=== PATIENT | female | born 1990 | race Caucasian/White ===

== ENCOUNTER 2020-05-30 15:02 | Emergency (ER) | payer OTHER, SELFPAY ==
[2020-05-30 15:30] VITALS: BP 122/88; PULSE 96; RESP 18; TEMP 37.1; O2SAT 99
--- NOTE | 2020-05-30 15:50 | ED.NECK ---
HPI - Neck Pain/Injury General Chief Complaint: Neck Pain/Injury Stated Complaint: Strained Muscle Time Seen by Provider: 05/30/20 15:45 Source: patient and RN notes reviewed Mode of arrival: ambulatory Limitations: no limitations History of Present Illness HPI Narrative: Patient presents today complaining of left neck pain. Pain started last night and kept her from sleeping. Denies numbness or tingling in the extremities. Denies any injury or trauma. Patient does not exercise or lift weights. She currently rates her pain 10/10, which increases with movement. She has been taking Tylenol without relief. complaint: neck pain Related Data Allergies Allergy/AdvReac Type Severity Reaction Status Date / Time No Known Allergies Allergy Verified 05/30/20 15:49 Review of Systems Review of Systems: Narrative: CONSTITUTIONAL: Denies body aches, fever, chills, or sweats. EYES: Denies visual changes, redness, or discharge. ENT: Denies rhinorrhea, congestion, sore throat, or otalgia. CARDIOVASCULAR: Denies chest pain, palpitations, or edema. RESPIRATORY: Denies cough or dyspnea. GASTROINTESTINAL: Denies abdominal pain, nausea, vomiting, or diarrhea. GENITOURINARY: Denies dysuria or hematuria. SKIN: Denies rash, itching, or wounds. MUSCULOSKELETAL: Denies back pain, joint pain, or myalgia.+ Neck pain NEUROLOGIC: Denies headache, numbness, tingling, or weakness. PSYCH: Denies depression or anxiety. PMFSH Comments At time of signature, I have reviewed and agree with nursing past medical, surgical, social and family history unless otherwise noted. Please see nursing chart for further information. There is no relevant family history pertinent to the presenting complaint Exam Narrative: Exam Narrative: GENERAL: Well-appearing, well-nourished, and in no acute distress. HEAD: Normocephalic, atraumatic. EYES: EOMI. No redness or drainage. Conjunctivae normal. ENT: Mucous membranes pink and moist. NECK: Decreased AROM due to pain. Tenderness to the left trapezius. Patient has full range of motion of her left arm/shoulder, with slight increased pain with internal and external rotation. No edema, ecchymosis noted. Distal sensation intact. Capillary refill normal. Radial pulses normal. No bony tenderness of the cervical spine noted. Supple. No lymphadenopathy. CHEST: No respiratory distress. EXTREMITIES: Normal range of motion. No edema. SKIN: Warm, dry, no rash. Capillary refill normal. Normal skin turgor. NEURO: No focal deficits. Alert and oriented x3. Gait steady. PSYCH: Normal affect. No signs of depression or anxiety. Course Vital Signs Vital signs: Vital Signs Temperature 98.8 F 05/30/20 15:30 Pulse Rate 96 05/30/20 15:30 Respiratory Rate 18 05/30/20 15:30 Blood Pressure 122/88 05/30/20 15:30 Pulse Oximetry 99 05/30/20 15:30 Temperature 98.8 F 05/30/20 15:30 Pulse Rate 96 05/30/20 15:30 Respiratory Rate 18 05/30/20 15:30 Blood Pressure 122/88 05/30/20 15:30 Pulse Oximetry 99 05/30/20 15:30 Reviewed. Pt has been instructed to follow up with her PCP regarding her elevated blood pressure today. MDM - Neck Pain/Injury Differential Diagnosis Differential diagnosis: Likely disc disorder of cervical region, whiplash injury to neck, cervical radiculopathy, torticollis and strain of neck muscle Critical Care Time Critical Care Time Critical Care Time: No Discharge Plan Discharge Clinical Impression: Strain of left trapezius muscle Qualifiers: Encounter type: initial encounter Qualified Code(s): S46.812A - Strain of other muscles, fascia and tendons at shoulder and upper arm level, left arm, initial encounter Patient Disposition: Home, Self-Care Condition: Stable Instructions: Cervical Strain (DC) Additional Instructions: Your symptoms are likely due to a strain in your trapezius muscle. Take an anti-inflammatory such as Aleve or ibuprofen. Take the Flexeril as di
== END 2020-05-30 16:00 | disposition home or self-care (01) ==
PROVIDERS: Emergency Provider Nurse Practitioner; PCP Internal Medicine
DX: S46.812A Strain of other muscles, fascia and tendons at shoulder and upper arm level, left arm, initial encounter (principal); X58.XXXA Exposure to other specified factors, initial encounter; F41.9 Anxiety disorder, unspecified; F32.9 Major depressive disorder, single episode, unspecified
CPT/HCPCS: 99213; G0463